=== PATIENT | female | born 1985 | race African-American/Black ===

== ENCOUNTER 2017-07-16 12:49 | Emergency (ER) | payer OTHER ==
[~2017-07-16] VITALS: Ht 182.9 cm; Wt 81.8 kg
[2017-07-16] MEDS ORDERED: ACETAMINOPHEN 325 MG TAB PO ONE (15:30)
[2017-07-16 15:47] LABS: BASO % 0.6 % (0.0-1.0); EOS # 0.1 K/mm3 (0.0-0.50); EOS % 1.8 % (0.0-3.0); LARGE UNSTAINED CELL # 0.1 K/mm3 (0.0-0.4); LARGE UNSTAINED CELL % 1.6 % (0.0-4.0); LYMPH % 29.4 % (24.0-44.0); MEAN CORPUSCULAR HEMOGLOBIN 28.7 pg (27.0-33.0); MEAN CORPUSCULAR HGB CONC 34.3 g/dl (32.0-36.5); MEAN CORPUSCULAR VOLUME 83.5 fl (80.0-96.0); MONO # 0.3 K/mm3 (0.0-0.8); MONO % 4.6 % (0.0-5.0); NEUTROPHILS # 4.1 K/mm3 (1.8-7.7); PLATELET COUNT, AUTOMATED 252 k/mm3 (150-450); RED CELL DISTRIBUTION WIDTH 13.4 % (11.5-14.5); WHITE BLOOD COUNT 6.6 K/mm3 (4.0-10.0)
[2017-07-16 16:35] LABS: ANION GAP 9 MEQ/L (8-16); BLOOD UREA NITROGEN 7 MG/DL (7-18); CALCIUM LEVEL 9.3 MG/DL (8.5-10.1); CARBON DIOXIDE LEVEL 26 MEQ/L (21-32); CHLORIDE LEVEL 103 MEQ/L (98-107); GLOMERULAR FILTRATION RATE > 60.0 (>60); GLUCOSE, FASTING 75 MG/DL (70-105); HCG, SERUM QUANTITATIVE 20670 MIU/ML; POTASSIUM SERUM 3.8 MEQ/L (3.5-5.1); SODIUM LEVEL 138 MEQ/L (136-145)
--- NOTE | 2017-07-16 16:39 | REP ---
First trimester obstetric ultrasound for vaginal bleeding, emergency room request: There are no comparison studies. The study is performed with transabdominal and Doppler ultrasound assessment. There is an intrauterine gestational sac with a pole. The pole crown-rump length is 0.5 cm corresponding to 6 weeks 2 days gestational age. The MCKENZIE is 03/09/2016. The heart rate is 116 beats per minute. There is a small 11 x 7 x 10 mm subchorionic hematoma, at the inferior margin of the gestational sac. There is a 1.7 cm right ovarian follicle, likely a corpus luteum. There is no free fluid in the pelvis. Signed by Lucho Basurto MD 07/16/2017 04:31 P
[2017-07-16 16:54] VITALS: BP 124/74
== END 2017-07-16 17:28 | disposition home or self-care (01) ==
LOC: M ED 12:49
DX: O43.891 Other placental disorders, first trimester (principal); O34.81 Maternal care for other abnormalities of pelvic organs, first trimester; N83.201 Unspecified ovarian cyst, right side

== ENCOUNTER 2017-07-20 12:48 | Emergency (ER) | payer OTHER ==
[~2017-07-20] VITALS: Ht 182.9 cm; Wt 81.8 kg
[2017-07-20] MEDS ORDERED: NS 1,000 ML IV SCH (13:38)
[2017-07-20] MEDS ORDERED: ONDANSETRON 4MG/2ML VIAL (J2405) IV ONE (13:45)
[2017-07-20] MEDS ORDERED: NS 1,000 ML IV ONE (13:45)
[2017-07-20 14:20] LABS: BASO % 0.4 % (0.0-1.0); EOS # 0.1 K/mm3 (0.0-0.50); EOS % 1.6 % (0.0-3.0); LARGE UNSTAINED CELL # 0.1 K/mm3 (0.0-0.4); LYMPH # 1.2 K/mm3 (1.5-4.5); LYMPH % 14.3 % (24.0-44.0); MEAN CORPUSCULAR HEMOGLOBIN 28.7 pg (27.0-33.0); MEAN CORPUSCULAR HGB CONC 33.9 g/dl (32.0-36.5); MEAN CORPUSCULAR VOLUME 84.7 fl (80.0-96.0); MONO # 0.3 K/mm3 (0.0-0.8); MONO % 3.6 % (0.0-5.0); NEUTROPHILS # 6.4 K/mm3 (1.8-7.7); NEUTROPHILS % 79.1 % (36.0-66.0); PLATELET COUNT, AUTOMATED 253 k/mm3 (150-450); RED CELL DISTRIBUTION WIDTH 13.5 % (11.5-14.5); WHITE BLOOD COUNT 8.1 K/mm3 (4.0-10.0)
--- NOTE | 2017-07-20 15:01 | REP ---
RENAL ULTRASOUND: Real-time sonographic evaluation of the kidneys performed. Kidneys are normal in size and echotexture, right kidney measuring 12.7 x 5.4 x 5.6 cm and left kidney 11.2 x 4.6 x 4.5 cm. There is no hydronephrosis, renal mass, or nephrolithiasis. Urinary bladder is empty. IMPRESSION: Negative renal ultrasound. Signed by Lucho Penn MD 07/20/2017 04:47 P
[2017-07-20 15:23] LABS: ALBUMIN 4.3 GM/DL (3.2-5.2); ALBUMIN/GLOBULIN RATIO 1.05 (1.00-1.93); ALKALINE PHOSPHATASE 95 U/L (45-117); ALT/SGPT 34 U/L (12-78); AMYLASE 58 U/L (25-115); ANION GAP 13 MEQ/L (8-16); AST/SGOT 18 U/L (15-37); BILIRUBIN,DIRECT 0.1 MG/DL (0.0-0.2); BILIRUBIN,TOTAL 0.3 MG/DL (0.2-1.0); BLOOD UREA NITROGEN 11 MG/DL (7-18); CALCIUM LEVEL 9.5 MG/DL (8.5-10.1); CARBON DIOXIDE LEVEL 24 MEQ/L (21-32); CHLORIDE LEVEL 101 MEQ/L (98-107); CREATININE FOR GFR 0.72 MG/DL (0.55-1.02); GLOMERULAR FILTRATION RATE > 60.0 (>60); GLUCOSE, FASTING 112 MG/DL (70-105); POTASSIUM SERUM 3.2 MEQ/L (3.5-5.1); SODIUM LEVEL 138 MEQ/L (136-145); TOTAL PROTEIN 8.4 GM/DL (6.4-8.2)
--- NOTE | 2017-07-20 15:23 | REP ---
FIRST TRIMESTER ULTRASOUND: Real-time sonographic evaluation of the gravid uterus performed utilizing transabdominal technique. There is a single living intrauterine gestation with estimated gestational age of 6 weeks 6 days based on the first ultrasound EDC 03/09/2018. [place]-rump length 8 mm corresponds to 6 weeks 5 days. heart rate 126 beats per minute. There is a small subchorionic hemorrhage which is essentially unchanged since the prior exam of 07/16/2017, measuring approximately 13 x 5 x 10 mm. A cystic structure in the right ovary measures 1.7 cm maximally likely a corpus luteum. There is no right ovarian torsion. Left ovary cannot be visualized. Signed by Lucho Penn MD 07/20/2017 04:47 P
[2017-07-20] MEDS ORDERED: ZOFR4TAB3 PO (16:32)
[2017-07-20 16:42] VITALS: BP 117/73
[2017-07-20] MEDS ORDERED: POTASSIUM CHLORIDE 10 MEQ SR TABLET PO ONE (16:45)
== END 2017-07-20 16:51 | disposition home or self-care (01) ==
LOC: M ED 12:48
DX: O21.0 Mild hyperemesis gravidarum (principal); O20.8 Other hemorrhage in early pregnancy; O99.111 Other diseases of the blood and blood-forming organs and certain disorders involving the immune mechanism complicating pregnancy, first trimester; Z3A.00 Weeks of gestation of pregnancy not specified
CPT/HCPCS: 76775; 76801; 80048; 80076; 81001; 82150; 83690; 84702; 85025; 93041; 93976; 96361; 96374; 99284; J2405

== ENCOUNTER 2018-02-28 10:35 | Day surgery (SDC) | payer OTHER ==
[2018-02-28] MEDS ORDERED: PROPOFOL 200 MG/20 ML VIAL As Ordered (10:53)
[2018-02-28] MEDS ORDERED: LIDOCAINE 2% INJ 100 MG/5 ML SDV (FOR ANES.) As Ordered (11:12)
[2018-02-28] MEDS ORDERED: NS 1,000 ML IV (11:45)
== END 2018-02-28 12:03 | disposition home or self-care (01) ==
LOC: M OPP 10:35
DX: R13.10 Dysphagia, unspecified (principal); F45.8 Other somatoform disorders; R63.0 Anorexia; R09.89 Other specified symptoms and signs involving the circulatory and respiratory systems; R63.4 Abnormal weight loss
CPT/HCPCS: 43235